=== PATIENT | male | born 1995 | race Caucasian/White ===

== ENCOUNTER → 2017-04-22 | Outpatient (CLI) | payer OTHER ==
[~2017-04-22] MED LIST: CIPR-344 PO; HYDR-4309 PO; PROM-110 PO
--- NOTE | 2017-04-22 17:10 | RADIOLOGY IMAGING REPORT ---
FACILITY: [facility] PATIENT NAME: Raghavendra Chen : 1995 MR: [id number] V: [id number] EXAM DATE: ORDERING PHYSICIAN: JAM MORENO TECHNOLOGIST: Location: [facility] Patient: Raghavendra Chen : 1995 Visit/Account:[id number] Date of Sevice: 04/22/2017 CHEST PA AND LAT INDICATION: Annual exam COMPARISON: June 06, 2014 FINDINGS: The cardiac silhouette is normal in size. Clear lungs. No osseous abnormality. No pleural fluid. Resolution of previously seen right upper lobe consolidation. IMPRESSION: Normal chest radiographs. Report Dictated By: Lai Dover MD at 04/22/2017 5:04 PM Report E-Signed By: Lai Dover MD at 04/22/2017 5:06 PM [id number]
== END ==
LOC: RAD 16:21
PROVIDERS: ATTEND Family Medicine
DX: Z00.00 Encounter for general adult medical examination without abnormal findings (principal)
CPT/HCPCS: 71046